=== PATIENT | male | born 1965 | race Caucasian/White ===

== ENCOUNTER 2016-09-05 20:07 | Emergency (ER) | payer SELFPAY ==
[~2016-09-05] VITALS: Ht 165.1 cm; Wt 67.0 kg
[2016-09-05 20:09] VITALS: BP 131/83; PULSE 98; RESP 16; TEMP 98.2; O2SAT 98
[2016-09-05] MEDS ORDERED: TETANUS/DIPHTHERIA TOXOID ADULT 0.5 ML VIAL IM ONE (21:30)
[2016-09-05] MEDS ORDERED: PROPARACAINE HCL 0.5% OPHT SOLN 15 ML BTL EACH EYE ONE (21:30)
[2016-09-05] MEDS ORDERED: TOBRAMYCIN SULF 0.3% OPHT SOLN 5 ML BTL LEFT EYE ONE (21:45)
--- NOTE | 2016-09-05 21:46 | PD ---
HPI Chief Complaint: Eye Problems/Injury Time Seen by Provider: 21:41 Travel History International Travel<30 days: No Contact w/Intl Traveler<30days: No Traveled to known affect area: No History of Present Illness HPI 51-year-old male presents to emergency department with complaints of photophobia and blurred vision out of his left eye for the past 2 days. He states that he was working with a wire brush and he felt something go up underneath his glasses into his left eye. He states that he attempted to get whatever was in his eye out. He felt no foreign body. He states that he is having more blurred vision and photophobia. Pain is mild. He has not had a tetanus shot over 5 years. No itching. No drainage. No matting. PFSH Past Medical History Medical History: Denies Significant Hx Tetanus Vaccination: > 5 Years Past Surgical History Surgical History: No Previous Surgery Social History Alcohol Use: No Tobacco Use: No Substance Use: No Allergies-Medications (Allergen,Severity, Reaction): Coded Allergies: No Known Allergies (Verified , 09/05/16) Reported Meds & Prescriptions Reported Meds & Active Scripts Active No Active Prescriptions or Reported Medications Review of Systems Except as stated in HPI: all other systems reviewed are Neg General / Constitutional: No: Fever, Chills Eyes: Positive: Blurred Vision, Photophobia, Redness, Pain, Visual changes, No : Diploplia, Drainage, Foreign Body Sensation, Tearing HENT: No: Headaches, Sore Throat Cardiovascular: No: Chest Pain or Discomfort, Palpitations Physical Exam Narrative GENERAL: Well-developed, well-nourished in no acute distress. Nontoxic appearing. HEAD: Normocephalic, atraumatic. EYES: Pupils equal round and reactive. Extraocular motions intact. No scleral icterus. No injection or drainage in the right eye. The left eye is injected. There is an obvious foreign body in the central vision. Alcaine is instilled in left eye. Lids are flipped and no other foreign body seen. Attempts at removal of the foreign body with a cotton-tipped applicators unsuccessful. The foreign bodies removed using an 18-gauge needle without difficulty. No rust ring. Positive fluorescein uptake where the foreign body had lied. ENT: TMs clear without erythema. The external auditory canals clear. Nose: clear . Posterior pharynx is pink and moist. No tonsillar edema or exudate. Uvula midline. Airway patent. NECK: Trachea midline.Supple, nontender, moves head freely. No central bony tenderness or spasm. CARDIOVASCULAR: Regular rate and rhythm without murmurs, gallops, or rubs. RESPIRATORY: Clear to auscultation. Breath sounds equal bilaterally. No wheezes , rales, or rhonchi. GASTROINTESTINAL: Abdomen soft, non-tender, nondistended. No hepato-splenomegaly , or palpable masses. No guarding. EXTREMITIES: No clubbing, cyanosis, or edema. No joint tenderness, effusion, or edema noted. BACK: Nontender without deformity or crepitance. No flank tenderness. Data Data Last Documented VS Vital Signs Date Time Temp Pulse Resp B/P Pulse Ox O2 Delivery O2 Flow Rate FiO2 09/05/16 20:09 98.2 98 16 131/83 98 Orders Proparacaine 0.5% Opth Soln (Alcaine 0.5 (09/05/16 21:30) Tetanus/Diphtheria Tox Adult (Tetanus/Di (09/05/16 21:30) Tobramycin 0.3% Opth Soln (Tobrex 0.3% O (09/05/16 21:45) MDM Medical Decision Making Medical Screen Exam Complete: Yes Emergency Medical Condition: Yes Medical Record Reviewed: Yes Differential Diagnosis MDM: High Differential diagnoses: Acute conjunctivitis (bacterial, viral, allergic, traumatic), glaucoma, iritis, traumatic globe injury, foreign body, corneal abrasion, corneal ulcer, diabetic retinopathy, photokeratitis, herpes keratitis , CMV retinitis Narrative Course Patient's foreign bodies removed without incidence. The patient is given tobramycin ophthalmic drops. One drop in the left eye 4 times daily until he sees on Wednesday. This is left eye foreign body-removed Diagnosis Primary Impression: left eye foreign body-removed Referrals: Vandana Tay MD 2 days Patient Instructions: General Instructions, Narcotic given in the ED Additional Instructions: Rest. Cool compresses. Tobramycin ophthalmic drops. Followup with an eye doctor Wednesday. Follow-up with a medical doctor one week. Return to the ER if any problems. Med/Other Pt SpecificInfo: Prescription(s) given Scripts No Active Prescriptions or Reported Meds Disposition: DISCHARGE HOME Condition: Stable David Viera Sep 05, 2016 21:45
== END 2016-09-05 21:56 | disposition home or self-care (01) ==
LOC: NEPB 20:07
DX: T15.92XA Foreign body on external eye, part unspecified, left eye, initial encounter (principal)
CPT/HCPCS: 65205; 90471; 90714